=== PATIENT | female | born 1955 | race Caucasian/White ===

== ENCOUNTER 2016-06-18 06:44 | Day surgery (SDC) | payer OTHER ==
[2016-06-14 13:08] VITALS: BMI 25.0
[~2016-06-18 06:44] MED LIST: LACTATED RINGERS 1,000 ML IV SCH
[2016-06-18] MEDS ORDERED: LACTATED RINGERS 1,000 ML IV ONE (07:12)
[2016-06-18 07:16] VITALS: RESP 18; TEMP 97
[2016-06-18] MEDS ORDERED: PROPOFOL 10 MG/ML 20 ML VIAL IV ONE (07:25)
--- NOTE | 2016-06-18 08:00 | P.OP ---
Date of Procedure: 06/18/16 Preoperative Diagnosis: Screening Postoperative Diagnosis: Mild diverticulosis Procedure(s) Performed: Total colonoscopy Anesthesia: MAC Surgeon: Chano Bashir Pathology: none sent Condition: stable Disposition: same day Indications for Procedure: Screening Operative Findings: Mild diverticulosis Description of Procedure: With the patient in the left lateral position rectal digital exam was normal there were no palpable masses. The video colonoscope was inserted transanally and advanced all the way to the cecum which was entered without visualized the. Colon was looked a little tortuous. A fair amount of her liquid stool in the right colon which had to be constantly suctioned and irrigated. The mucosa were thoroughly examined as the scope was withdrawn. Findings mild diverticulosis uncomplicated. No polyps or neoplasms were seen. Recommendation high fiber diet. Follow-up colonoscopy in about 10 years or so since she has no high-risk factors for colon cancer.
[2016-06-18 08:19] VITALS: BP 111/73; PULSE 68
== END 2016-06-18 10:00 | disposition home or self-care (01) ==
LOC: ORWHC2ENDO 06:44
PROVIDERS: ATTEND Surgery
DX: Z12.11 Encounter for screening for malignant neoplasm of colon (principal); K57.30 Diverticulosis of large intestine without perforation or abscess without bleeding; Q43.8 Other specified congenital malformations of intestine; Z87.19 Personal history of other diseases of the digestive system; E78.5 Hyperlipidemia, unspecified; Z79.899 Other long term (current) drug therapy
CPT/HCPCS: J2704; G0121; 45378

== ENCOUNTER → 2018-03-08 | Outpatient (CLI) | payer OTHER ==
--- NOTE | 2018-03-09 18:25 | MR ---
EXAMINATION TYPE: MR thoracic spine wo con DATE OF EXAM: 03/08/2018 COMPARISON: NONE HISTORY: 63-year-old female back pain, thoracic spine pain TECHNIQUE: Multiplanar, multisequence images of the thoracic spine were obtained without IV contrast. FINDINGS: The sagittal T2 counting sequence shows moderate degenerative disc disease especially in the mid cerv ical spine with discussed by complex and ligamentum flavum thickening causing mild narrowing of the s jj canal at C4-C5 and C5-C6. No trino canal compromise. Scattered facet and uncovertebral joint ar thropathy is present in the cervical spine. Within the thoracic spine, vertebral body heights are preserved and alignment is maintained. No suspicious bone marrow replacement. Variable minimal intervertebral disc desiccation mid thoracic spine and at T10-T11 as well. A minimal posterior disc bulging is present from T2 through T6 levels. No focal disc herniation. Scattered facet arthropathy upper to mid thoracic spine. On the right, changes result in mild neurofo raminal narrowing at T1-T2 and mild on the left at T1-T2 and T2-T3. Normal course, caliber, and signal intensity of the thoracic spinal cord. Conus medullaris is normal. No prevertebral or paravertebral soft tissue abnormality seen. IMPRESSION: 1. Moderate spondylotic change especially in the mid cervical spine with mild narrowing of the spinal canal at C4-C5 and C5-C6 noted on the sagittal counting sequence. 2. Variable mild intervertebral disc desiccation in the thoracic spine. Mild facet arthropathy upper thoracic spine. Changes result in mild neural foraminal narrowing at T1-T2 and T2-T3. 3. No focal disc herniation or otherwise any significant spinal canal or neuroforaminal stenosis seen .
== END | disposition home or self-care (01) ==
LOC: RADMRIMAIN 10:41
PROVIDERS: ATTEND Family Medicine
DX: M48.04 Spinal stenosis, thoracic region (principal); M46.94 Unspecified inflammatory spondylopathy, thoracic region; G89.29 Other chronic pain
CPT/HCPCS: 72146

== ENCOUNTER 2023-02-20 16:45 | Emergency (ER) | payer MEDICARE, OTHER ==
[2023-02-20] MEDS ORDERED: ASPIRIN 81 MG PO STA (16:55)
--- NOTE | 2023-02-20 16:58 | ED ---
Chest Pain HPI - General Source: patient Mode of arrival: ambulatory Limitations: no limitations <Orlando Renee - Last Filed: 02/20/23 16:56> <Martinez Cote - Last Filed: 02/20/23 20:01> - General Stated Complaint: Chest/Back Pain Time Seen by Provider: 02/20/23 16:56 - History of Present Illness Initial Comments: Quicknote: 67 y/o female presenting with CC of chest and epigastric pain, ongoing for the last several days. Worse after eating today. No SAIGE Electronically signed, Orlando Renee PA-C (Orlando Renee) I agree with the above note. 67-year-old female no prior history of heart disease no history of gallbladder or GI disease who states her last 3-4 days she's had intermittent episodes of mid epigastric lower sternal achy-type pain. It is worse was 7 and 8/10 in severity. She states she had an attack today after eating about one half hours later it was 78/10 in severity currently is 0/10. No fevers chills nausea vomiting sweats no change in bowel habits no dysuria hematuria. No shortness breath with these episodes. No other current complaints or modifying factors (Martinez Cote) - Related Data Home Medications Medication Instructions Recorded Confirmed L.acidoph,Paracasei, B.lactis 1 each PO DAILY 06/14/16 06/18/16 [Probiotic] Multivitamins, Thera [Multivitamin 1 tab PO DAILY 06/14/16 06/18/16 (formulary)] Iona-3/Dha/Epa/Fish Oil [Fish Oil 1 each PO DAILY 06/14/16 06/18/16 500 mg Softgel] Ubidecarenone [Coenzyme Q10] 10 mg PO DAILY 06/14/16 06/18/16 Allergies Allergy/AdvReac Type Severity Reaction Status Date / Time No Known Allergies Allergy Verified 02/20/23 16:57 Review of Systems ROS Other: All systems not noted in ROS Statement are negative. <Orlando Renee - Last Filed: 02/20/23 16:56> ROS Other: All systems not noted in ROS Statement are negative. <Martinez Cote - Last Filed: 02/20/23 20:01> ROS Statement: Those systems with pertinent positive or pertinent negative responses have been documented in the HPI. EKG Findings - EKG Results: EKG: interpreted by ERMD (EKG interpreted by me normal sinus rhythm a 74 NH interval 161 QRS duration 75 daily since QTC 365/393 acute changes seen) <Martinez Cote - Last Filed: 02/20/23 20:01> Past Medical History Past Medical History: No Reported History History of Any Multi-Drug Resistant Organisms: None Reported Past Surgical History: Hysterectomy, Tonsillectomy Additional Past Surgical History / Comment(s): Partial Hyst. toenail surgery. Past Anesthesia/Blood Transfusion Reactions: No Reported Reaction Past Psychological History: No Psychological Hx Reported Past Alcohol Use History: Rare Additional Past Alcohol Use History / Comment(s): Quit smoking 10 years. Smoked approx 1 PPD. Past Drug Use History: None Reported - Past Family History Mother Family Medical History: Cancer Additional Family Medical History / Comment(s): Unknown Father Additional Family Medical History / Comment(s): Intestinal blockage. <ReneeOrlando - Last Filed: 02/20/23 16:56> General Exam Limitations: no limitations General appearance: alert, in no apparent distress Head exam: Present: atraumatic, normocephalic Eye exam: Present: normal appearance Neck exam: Present: normal inspection Respiratory exam: Absent: respiratory distress Extremities exam: Present: normal inspection Neurological exam: Present: alert, oriented X3 Psychiatric exam: Present: normal affect, normal mood Skin exam: Present: dry <Orlando Renee - Last Filed: 02/20/23 16:56> General appearance: alert, in no apparent distress Head exam: Present: atraumatic, normocephalic, normal inspection Eye exam: Present: normal appearance, PERRL, EOMI. Absent: scleral icterus, conjunctival injection, periorbital swelling ENT exam: Present: normal exam, mucous membranes moist Neck exam: Present: normal inspection, full ROM, other (No stridor JVD or bruits). Absent: tenderness, meningismus, lymphadenopathy Respiratory exam: Present: normal lung sounds bilaterally. Absent: respiratory distress, wheezes, rales, rhonchi, stridor Cardiovascular Exam: Present: regular rate, normal rhythm, normal heart sounds. Absent: systolic murmur, diastolic murmur, rubs, gallop, clicks GI/Abdominal exam: Present: soft, normal bowel sounds. Absent: distended, tenderness, guarding, rebound, rigid, bruit, pulsatile mass Rectal exam: Present: deferred Extremities exam: Present: normal inspection, full ROM, normal capillary refill. Absent: tenderness, pedal edema, joint swelling, calf tenderness Back exam: Present: normal inspection Neurological exam: Present: alert, oriented X3, CN II-XII intact Psychiatric exam: Present: normal affect, normal mood Skin exam: Present: warm, dry, intact, normal color. Absent: rash <Martinez Cote - Last Filed: 02/20/23 20:01> - General Exam Comments Initial Comments: This is a well-developed well-nourished awake alert oriented 4 female (Martinez Cote) Course Vital Signs 02/20/23 02/20/23 02/20/23 16:55 18:16 18:50 Temperature 98.2 F Pulse Rate 90 83 Pulse Rate [ 73 Measurement Coordinator ] Respiratory 18 16 Rate Blood Pressure 171/96 154/78 O2 Sat by Pulse 98 Oximetry 02/20/23 19:05 Temperature Pulse Rate 78 Pulse Rate [ Measurement Coordinator ] Respiratory 16 Rate Blood Pressure 154/77 O2 Sat by Pulse Oximetry Chest Pain MDM <Martinez Cote - Last Filed: 02/20/23 20:01> - MDM The patient's been pain-free since arrival no further symptoms. The workup thus far been negative) significant. The cardiac and she had lab work all within normal limits. Sound of the gallbladder negative this was interpreted by me chest x-ray negative for acute findings interpreted by me EKG within normal limits also interpreted by me. I did suggest to the patient that she take Pepcid if needed and follow-up with her doctor return when necessary we did discuss the potential need for a HIDA scan outpatient.Was pt. sent in by a medical professional or institution (, PA, PROGRAM DIR, urgent care, hospital, or intermediate...) When possible be specific @ -No Did you speak to anyone other than the patient for history (EMS, parent, family, police, friend...)? What history was obtained from this source @ -Family Did you review nursing and triage notes (agree or disagree)? Why? @ -I reviewed and agree with nursing and triage notes Were old charts reviewed (outside hosp., previous admission, EMS record, old EKG, old radiological studies, urgent care reports/EKG's, intermediate records)? Report findings @ -No old charts were reviewed Differential Diagnosis (chest pain, altered mental status, abdominal pain women, abdominal pain men, vaginal bleeding, weakness, fever, dyspnea, syncope, headache, dizziness, GI bleed, back pain, seizure, CVA, palpatations, mental health, musculoskeletal)? @ -Abdominal pain, chest pain, gastritis, gallbladder disease EKG interpreted by me (3pts min.). @ -As above EKG interpreted by me sinus rhythm of 74 NH interval 161 QRS duration 75 QT since QTC 365/[address]-T wave changes X-rays interpreted by me (1pt min.). @ -Chest x-ray interpreted by me negative for acute processes CT interpreted by me (1pt min.). @ -None done U/S interpreted by me (1pt. min.). @ -Ultrasound interpreted by me no evidence of acute gallbladder pathology no acute processes. What testing was considered but not performed or refused? (CT, X-rays, U/S, labs)? Why? @ -None What meds were considered but not given or refused? Why? @ -None Did you discuss the management of the patient with other professionals (professionals i.e. , PA, PROGRAM DIR, lab, RT, psych nurse, social research assistant, nurse care manager, teacher, detention officer, wrapper caser)? Give summary @ -No Was smoking cessation discussed for >3mins.? @ -No Was critical care preformed (if so, how long)? @ -No Were there social determinants of health that impacted care today? How? (Homelessness, low income, unemployed, alcoholism, drug addiction, transportation, low edu. Level, literacy, decrease access to med. care, custodial, rehab)? @ -No Was there de-escalation of care discussed even if they declined (Discuss DNR or withdrawal of care, Hospice)? DNR status @ -No What co-morbidities impacted this encounter? (DM, HTN, Smoking, COPD, CAD, Cancer, CVA, ARF, Chemo, Hep., AIDS, mental health diagnosis, sleep apnea, morbid obesity)? @ -Hysterectomy Was patient admitted / discharged? Hospital course, mention meds given and route, prescriptions, significant lab abnormalities, going to OR and other pertinent info. @ -hospital course the patient was discharged home in satisfactory condition. She will follow-up with her doctor and return if any problems Undiagnosed new problem with uncertain prognosis? @ -No Drug Therapy requiring intensive monitoring for toxicity (Heparin, Nitro, Insulin, Cardizem)? @ -No Were any procedures done? @ -No Diagnosis/symptom? @ -Abdominal pain, biliary colic] Acute, or Chronic, or Acute on Chronic? @ -Acute Uncomplicated (without systemic symptoms) or Complicated (systemic symptoms)? @ -default Side effects of treatment? @ -No Exacerbation, Progression, or Severe Exacerbation? @ -No Poses a threat to life or bodily function? How? (Chest pain, [place], [place], pneumonia, PE, COPD, DKA, ARF, appy, cholecystitis, CVA, Diverticulitis, Homicidal, Suicidal, threat to staff... and all critical care pts) @ -No (Martinez Cote) Disposition <Orlando Renee - Last Filed: 02/20/23 16:56> Is patient prescribed a controlled substance at d/c from ED?: No Decision Date: 02/20/23 Decision Time: 20:01 <Martinez Cote - Last Filed: 02/20/23 20:01> Clinical Impression: Acute abdominal pain, Biliary colic Disposition: HOME SELF-CARE Condition: Good Instructions (If sedation given, give patient instructions): Abdominal Pain (ED), Biliary Colic (ED) Additional Instructions: [id number] Pepcid when necessary, follow-up with her doctor, return when necessary Referrals: Candie Hernandez DO [Primary Care Provider] - 1-2 days
[2023-02-20 17:18] VITALS: TEMP 98.2
[2023-02-20 17:56] LABS: Basophils % (A) 0 %; Eosinophils # (A) 0.1 k/uL (0-0.7); Eosinophils % (A) 1 %; HCT 41.2 % (34.0-46.0); HGB 13.6 gm/dL (11.4-16.0); Lymphocytes # (A) 1.5 k/uL (1.0-4.8); Lymphocytes % (A) 14 %; MCH 29.5 pg (25.0-35.0); MCHC 33.1 g/dL (31.0-37.0); MCV 89.3 fL (80.0-100.0); Mean Platelet Volume 7.7; Monocytes # (A) 0.4 k/uL (0-1.0); Monocytes % (A) 4 %; Neutrophils # (A) 8.1 k/uL (1.3-7.7); Neutrophils % (A) 79 %; Platelet Count 325 k/uL (150-450); RBC 4.62 m/uL (3.80-5.40); RDW 13.3 % (11.5-15.5); WBC 10.2 k/uL (3.8-10.6)
[2023-02-20 18:07] LABS: ALT 24 U/L (4-34); AST 30 U/L (14-36); African American GFR (CKD) >90 (>60 ml/min/1.73 sqM); Albumin 4.1 g/dL (3.5-5.0); Alkaline Phosphatase 80 U/L (38-126); Amylase 66 U/L (30-110); Anion Gap 9 mmol/L; Blood Urea Nitrogen 17 mg/dL (7-17); Calcium 9.4 mg/dL (8.4-10.2); Carbon Dioxide 25 mmol/L (22-30); Chloride 103 mmol/L (98-107); Glucose 131 mg/dL (74-99); Lipase 127 U/L (23-300); Magnesium 2.1 mg/dL (1.6-2.3); Non-African American GFR(CKD) >90 (>60 ml/min/1.73 sqM); Sodium 137 mmol/L (137-145); Total Bilirubin 0.4 mg/dL (0.2-1.3); Total Protein 6.9 g/dL (6.3-8.2)
[2023-02-20 18:14] LABS: INR 0.9 (<1.2); Partial Thromboplastin Time 22.8 sec (22.0-30.0); Prothrombin Time 10.3 sec (10.0-12.5)
[2023-02-20 18:24] VITALS: RESP 16
[2023-02-20 18:41] LABS: Appearance,Urine Clear (Clear); Bilirubin,Urine Negative (Negative); Blood,Urine Negative (Negative); Color,Urine Colorless; Glucose,Urine (UA) Negative (Negative); Ketones,Urine Negative (Negative); Leukocyte Esterase,Urine Negative (Negative); Nitrite,Urine Negative (Negative); Protein,Urine Negative (Negative); Specific Gravity,Urine 1.013 (1.001-1.035); Urobilinogen,Urine <2.0 mg/dL (<2.0)
--- NOTE | 2023-02-20 18:59 | US ---
EXAMINATION TYPE: US gallbladder DATE OF EXAM: 02/20/2023 COMPARISON: NONE CLINICAL INDICATION: Female, 67 years old with history of Right upper quadrant; RUQ and chest pain TECHNIQUE: Multiple sonographic images of the right upper quadrant are obtained. FINDINGS: EXAM MEASUREMENTS: Liver Length: 13.6 cm Gallbladder Wall: 0.19 cm CBD: 0.30 cm Right Kidney: 10.5 x 4.3 x 4.9 cm Pancreas: wnl Liver: wnl Gallbladder: wnl Evidence for sonographic Tabor's sign: No CBD: wnl Right Kidney: wnl IMPRESSION: No evidence for acute process.
[2023-02-20 19:06] VITALS: BP 154/77; PULSE 78
--- NOTE | 2023-02-20 19:52 | XR ---
EXAMINATION TYPE: XR chest 2V DATE OF EXAM: 02/20/2023 7:37 PM CLINICAL INDICATION:Female, 67 years old with history of Chest Pain; [facility] COMPARISON: None TECHNIQUE: XR chest 2V Frontal and lateral views of the chest. FINDINGS: Lungs/Pleura: There is no evidence of pleural effusion, focal consolidation, or pneumothorax. Pulmonary vascularity: Unremarkable. Heart/mediastinum: Cardiomediastinal silhouette is unremarkable. Musculoskeletal: No acute osseous pathology. Other findings: None IMPRESSION: No acute cardiopulmonary disease/process.
== END 2023-02-20 20:18 | disposition home or self-care (01) ==
LOC: EC 16:45
DX: K80.50 Calculus of bile duct without cholangitis or cholecystitis without obstruction (principal); Z87.891 Personal history of nicotine dependence
CPT/HCPCS: 36415; 71046; 76705; 80053; 81003; 82150; 83690; 83735; 84484; 85025; 85610; 85730; 93005; 99285